=== PATIENT | female | born 1955 | race Two or more races ===

== ENCOUNTER 2018-07-02 05:58 | Inpatient (IN) | payer OTHER, MEDICARE ==
[~2018-07-02] VITALS: Ht 165.1 cm; Wt 77.1 kg
[2018-07-02] MEDS ORDERED: PANTOPRAZOLE 40 MG/10 ML VIAL IV STA (07:18)
[2018-07-02] MEDS ORDERED: SODIUM CHLORIDE 0.9% 500 ML IVB ONE (07:18)
[2018-07-02] MEDS ORDERED: SODIUM CHLORIDE 0.9% 1,000 ML IV ONE (07:18)
[2018-07-02] MEDS ORDERED: cefTRIAXone 1GM/50ML D5W 50 ML IV ONE ×3 (07:30→14:45)
[2018-07-02] MEDS ORDERED: HYDROmorphone HCL 2 MG/ML VL IV ONE (07:30)
[2018-07-02] MEDS ORDERED: PROMETHAZINE HCL 25 MG/ML 1ML IV PRN (07:30)
[2018-07-02 08:33] LABS: INR 1.01 (0.9-1.15); Partial Thromboplastin Time 27.2 sec (23.78-33.04); Prothrombin Time 10.8 sec (9.27-12.13)
[2018-07-02 08:59] LABS: Urine Bacteria FEW /hpf (None Seen); Urine Blood Negative /uL (Negative); Urine Mucus FEW (None Seen); Urine Specific Gravity 1.031 (1.001-1.035); Urine WBC 32 /hpf (0 - 5)
[2018-07-02 09:10] LABS: Basophils # (auto) 0 uL; Basophils % (auto) 0.2 % (0.0-2.0); Eosinophils # (auto) 0 uL; Eosinophils % (auto) 0.1 % (0.0-7.0); Hematocrit 42.4 % (36.0-46.0); Hemoglobin 13.9 g/dL (12.2-16.2); Lymphocytes # (auto) 0.4 uL; Lymphocytes % (auto) 4.4 % (10.0-50.0); Mean Corpuscular Hemoglobin 27.9 pg (28.0-32.0); Mean Corpuscular Hgb Conc. 32.8 g/dL (32.0-36.0); Mean Corpuscular Volume 85.1 fL (80.0-100.0); Monocytes # (auto) 0.3 uL; Neutrophils # (auto) 7.4 uL; Neutrophils % (auto) 91.3 % (37.0-80.0); Platelet Count (auto) 178 10^3/uL (140-450); Red Blood Cells 4.98 10^6/uL (4.0-5.20); Red Cell Distribution Width 14.3 % (11.8-14.3); White Blood Cell 8.1 10^3/uL (4.4-10.8)
[2018-07-02 09:11] LABS: Alanine Aminotransferase 33 U/L (13-56); Albumin 3.1 g/dL (3.4-5.0); Amylase 48 U/L (25-115); Anion Gap 11 (5-15); Aspartate Aminotransferase 20 U/L (15-37); BUN/Creatinine Ratio 20.2; Blood Urea Nitrogen 21 mg/dL (7-18); Calcium 8.5 mg/dL (8.5-10.1); Carbon Dioxide 21 mmol/L (21-32); Chloride 104 mmol/L (98-107); GFR African American 69 mL/min; GFR Non-African American 57 mL/min; Glucose 113 mg/dL (74-106); Lipase 63 U/L (73-393); Potassium 3.8 mmol/L (3.5-5.1); Sodium 136 mmol/L (136-145)
[2018-07-02 09:15] LABS: Alkaline Phosphatase 61 U/L (45-117); Bilirubin, Total 0.9 mg/dL (0.2-1.0); Total Protein 6.8 g/dL (6.4-8.2)
[2018-07-02] MEDS ORDERED: DEXAMETHASONE SOD PHOS 10MG/1ML VIAL INJ IV ONE (12:25)
[2018-07-02] MEDS ORDERED: MIDAZOLAM HCL 1MG/1ML-2 ML VIAL IV ONE (12:25)
[2018-07-02] MEDS ORDERED: GLYCOPYRROLATE 0.2 MG/ML 1ML VIAL IV ONE (12:25)
[2018-07-02] MEDS ORDERED: NEOSTIGMINE 1 MG/ML INJ (10mg/10ML VIAL) IV ONE (12:25)
[2018-07-02] MEDS ORDERED: HYDROmorphone HCL 2 MG/ML VL ONE (12:45)
[2018-07-02] MEDS ORDERED: fentaNYL CITRATE 100 MCG/2 ML VL ONE (12:45)
[2018-07-02] MEDS ORDERED: ROCURONIUM 10MG/ML 10ML VIAL IV ONE (12:45)
[2018-07-02] MEDS ORDERED: MIDAZOLAM HCL 1MG/1ML-2 ML VIAL ONE (12:46)
[2018-07-02] MEDS ORDERED: SUCCINYLCHOLINE CHLORIDE 20 MG/ML 10ML VIAL IV ONE (12:48)
[2018-07-02] MEDS ORDERED: ETOMIDATE (2MG/ML) 20ML VIAL IV ONE (13:51)
[2018-07-02] MEDS: metroNIDAZOLE 500MG/100ML 100 ML IV SCH ×2 (14:00→21:47)
[2018-07-02] MEDS ORDERED: KETOROLAC TROMETH 30 MG/ML 1ML VIAL IV ONE (14:00)
[2018-07-02] MEDS ORDERED: MORPHINE SULFATE 10 MG/ML INJ 1ML SDV IV ONE (14:00)
[2018-07-02] MEDS ORDERED: LABETALOL HCL 5 MG/ML 4ML SYRINGE IV PRN (14:00)
[2018-07-02] MEDS ORDERED: ONDANSETRON HCL 4 MG/2 ML VIAL IV ONE (14:00)
[2018-07-02] MEDS ORDERED: HYDROmorphone HCL 2 MG/ML VL IV PRN ×2 (14:00)
[2018-07-02] MEDS ORDERED: methylPREDNISolone SOD SUCC 500 MG in SODIUM CHL 0.9% 100 ML IV ONE (14:00)
[2018-07-02] MEDS ORDERED: MORPHINE SULFATE 10 MG/ML INJ 1ML SDV IV PRN ×3 (14:00→14:45)
[2018-07-02] MEDS ORDERED: MIDAZOLAM HCL 1MG/1ML-2 ML VIAL IV PRN (14:00)
[2018-07-02] MEDS ORDERED: ONDANSETRON HCL 4 MG/2 ML VIAL IV PRN ×2 (14:00→14:45)
[2018-07-02] MEDS ORDERED: ePHEDrine SULFATE 50 MG/ML AMP IV PRN (14:00)
[2018-07-02] MEDS ORDERED: PANTOPRAZOLE 80 MG in SODIUM CHL 0.9% 60 ML IV SCH (14:15)
[2018-07-02] MEDS ORDERED: LABETALOL HCL 5 MG/ML ML 20ML VIAL IV PRN (14:45)
[2018-07-02] MEDS ORDERED: NITROGLYCERIN 0.4 MG SL TAB SL PRN (14:45)
[2018-07-02 15:30] LABS: Basophils # (auto) 0 uL; Basophils % (auto) 0.1 % (0.0-2.0); Eosinophils # (auto) 0 uL; Hematocrit 39.4 % (36.0-46.0); Lymphocytes # (auto) 0.1 uL; Lymphocytes % (auto) 1.7 % (10.0-50.0); Mean Corpuscular Hgb Conc. 32.8 g/dL (32.0-36.0); Mean Corpuscular Volume 85.4 fL (80.0-100.0); Monocytes # (auto) 0.4 uL; Monocytes % (auto) 4.5 % (0.0-12.0); Neutrophils # (auto) 8.3 uL; Neutrophils % (auto) 93.7 % (37.0-80.0); Platelet Count (auto) 198 10^3/uL (140-450); Red Blood Cells 4.62 10^6/uL (4.0-5.20); Red Cell Distribution Width 14.3 % (11.8-14.3); White Blood Cell 8.8 10^3/uL (4.4-10.8)
--- NOTE | 2018-07-02 15:46 | NUR ---
Per Stacy (MOLECULAR PATHOLOGIST) Solluis felipe Medral and Protonix drip need to be given.
--- NOTE | 2018-07-02 16:00 | NUR ---
Telemetry admit from [facility] admitted to Telemetry unit after SBAR received. Patient oriented to BOLIVAR BLUNT, primary RN, unit, room, bed, and unit policies regarding patient care and visiting hours. Patient now on continuous telemetry monitoring, tele box # 6 and telemetry reading on arrival to unit is . Patient placed on bedside oxygen, weighed by bed scale and encouraged to call if they need something. All questions and concerns addressed, patient verbalized understanding.
[2018-07-02 16:11] LABS: Albumin 2.7 g/dL (3.4-5.0); BUN/Creatinine Ratio 20.5; Calcium 7.8 mg/dL (8.5-10.1)
[2018-07-02 16:14] LABS: Bilirubin, Total 0.7 mg/dL (0.2-1.0)
[2018-07-02] MEDS ORDERED: ASPI-231 PO (16:22)
[2018-07-02] MEDS ORDERED: BISO5TAB44 PO (16:22)
[2018-07-02] MEDS ORDERED: VALG450T PO (16:22)
[2018-07-02] MEDS ORDERED: MAGN400T28 PO (16:22)
[2018-07-02] MEDS ORDERED: TACR1CAP19 OR (16:22)
[2018-07-02] MEDS ORDERED: PRE5T PO (16:22)
[2018-07-02] MEDS ORDERED: LEVO88TA4 PO (16:22)
[2018-07-02] MEDS ORDERED: MYCO500T PO (16:22)
[2018-07-02] MEDS ORDERED: ATOR80TA PO (16:22)
[2018-07-02 16:30] VITALS: BP 150/85
[2018-07-02] MEDS: D5W/ SOD CHL 0.9%/KCL 20MEQ 1,000 ML IV SCH (16:49)
[2018-07-02 17:04] VITALS: BP_SYST 137; BP_SYST 150; BP_DIAS 54; BP_DIAS 85
[2018-07-02] MEDS ORDERED: metroNIDAZOLE 500MG/100ML 100 ML IV SCH (18:00)
--- NOTE | 2018-07-02 18:45 | NUR ---
Empty 75 ml of Serosanguineous from GARCIA drain.
[2018-07-02] MEDS: LABETALOL HCL 5 MG/ML 4ML SYRINGE IV PRN (18:57)
--- NOTE | 2018-07-02 18:58 | NUR ---
T 99.5, cooling measure started. Will continue to monitor.
--- NOTE | 2018-07-02 19:30 | NUR ---
Temperature reassessed, at 98.5.: Cooling measures successful. Patients temperature is at 98.5.
--- NOTE | 2018-07-02 19:40 | NUR ---
Opening Shift Note Assumed care of patient, awake and alert oriented x4. GARCIA drain is draining and intact with serosanguineous fluid. Dressing on abdomen is dry and intact. No S/S of distress/SOB or pain noted. Bed is in lowest locked position with bed rails up x2 and call light is within reach of the patient. Instructed on POC and to call for assist PRN.
[2018-07-02] MEDS: methylPREDNISolone SOD SUCC 125 MG/2 ML VL IV SCH (21:47)
[2018-07-02 22:00] VITALS: BP 133/81
[2018-07-02] MEDS ORDERED: PANTOPRAZOLE 40 MG/10 ML VIAL IV SCH (22:00)
--- NOTE | 2018-07-02 22:12 | NUR ---
Hospitalist paged: Paged hospitalist due to patient stating that they need to have their Tocrolimus (Astagraf) for kidney due to kidney transplant which is due every 12 hours. Will notify hospitalist. Addendum: 07/03/18 at 0412 by Mitra Devine RN RN Edit spelling error: Tacrolimus (Astagraf) 1mg Cap every 12 hours
--- NOTE | 2018-07-02 22:47 | NUR ---
Hospitalist called back regarding Tacrolimus: Hospitalist Natalie ordered Tacrolimus (Astagraf) 1mg Cap every 12 hours for patient as patient takes it at home. However, hospitalist stated that hospital may not carry medication. Will inform patient to have family member bring medication in tomorrow.
--- NOTE | 2018-07-02 23:00 | NUR ---
Notified patient about Tacrolimus: Informed patient that hospitalist has ordered Tacrolimus (Astagraf) 1mg Cap every 12 hours for the patient as patient takes it at home, but hospital does not carry medication in the [facility]. Instructed patient to have a family member bring the medication in for the morning to be placed in patient cassette to be administered in the hospital. Patient verbalized understanding. Will notify day shift nurse.
[2018-07-03] VITALS (7 sets, daily range): BP systolic 150–158; BP diastolic 82–94
[2018-07-03] MEDS: D5W/ SOD CHL 0.9%/KCL 20MEQ 1,000 ML IV SCH ×4 (01:51→22:27)
[2018-07-03] MEDS: metroNIDAZOLE 500MG/100ML 100 ML IV SCH ×3 (06:12→22:00)
[2018-07-03] MEDS: methylPREDNISolone SOD SUCC 125 MG/2 ML VL IV SCH ×3 (06:13→22:00)
[2018-07-03] MEDS: LABETALOL HCL 5 MG/ML 4ML SYRINGE IV PRN ×3 (06:14→12:24)
--- NOTE | 2018-07-03 06:15 | NUR ---
PRN Labetalol given due to elevated blood pressure: Blood pressure was 159/94, heart rate 101. Patient given labetalol prn for blood pressure. No S/S of distress SOB or pain noted in patient.
--- NOTE | 2018-07-03 07:05 | NUR ---
Emptied 90 mls of serosanguineous fluid from GARCIA drain.
[2018-07-03 07:07] LABS: Basophils # (auto) 0 uL; Basophils % (auto) 0.1 % (0.0-2.0); Eosinophils # (auto) 0 uL; Hematocrit 39.2 % (36.0-46.0); Lymphocytes # (auto) 0.2 uL; Lymphocytes % (auto) 1.7 % (10.0-50.0); Mean Corpuscular Hemoglobin 28.2 pg (28.0-32.0); Mean Corpuscular Hgb Conc. 33.2 g/dL (32.0-36.0); Mean Corpuscular Volume 85.1 fL (80.0-100.0); Monocytes # (auto) 0.4 uL; Neutrophils # (auto) 9.9 uL; Neutrophils % (auto) 94.2 % (37.0-80.0); Nucleated Red Blood Cells % 0.2 %; Platelet Count (auto) 210 10^3/uL (140-450); Red Blood Cells 4.61 10^6/uL (4.0-5.20); Red Cell Distribution Width 14.4 % (11.8-14.3); White Blood Cell 10.6 10^3/uL (4.4-10.8)
--- NOTE | 2018-07-03 07:08 | NUR ---
Closing note: Patient is resting in bed with no S/S of distress SOB, or pain noted. Breaths are even and unlabored. Bed is in lowest locked position with bed rails up x2 and call light is within reach of the patient. Will endorse care to day shift nurse.
[2018-07-03 07:15] LABS: Calcium 8.1 mg/dL (8.5-10.1); Magnesium 1.9 mg/dL (1.6-2.6); Potassium 4.2 mmol/L (3.5-5.1)
[2018-07-03 07:18] LABS: BUN/Creatinine Ratio 16.1
--- NOTE | 2018-07-03 08:00 | NUR ---
Opening Shift Note Assumed care of patient, awake and alert. No S/S of distress/SOB or pain. Instructed on POC and to call for assist PRN, will continue to monitor for changes Q1hr and PRN.
[2018-07-03] MEDS ORDERED: cefTRIAXone 1GM/50ML D5W 50 ML IV SCH (09:00)
[2018-07-03] MEDS ORDERED: TACROLIMUS 1 MG CAP PO SCH ×2 (10:00)
[2018-07-03] MEDS: cefTRIAXone 1GM/50ML D5W 50 ML IV SCH (10:05)
[2018-07-03] MEDS: PANTOPRAZOLE 80 MG in SODIUM CHL 0.9% 60 ML IV SCH ×2 (10:06→20:10)
[2018-07-03] MEDS ORDERED: METOPROLOL TARTRATE 50 MG TAB PO ONE (13:15)
[2018-07-03] MEDS ORDERED: ACETAMINOPHEN 500 MG TAB PO PRN (13:15)
[2018-07-03] MEDS ORDERED: BACLOFEN 10 MG TAB PO ONE (13:30)
--- NOTE | 2018-07-03 14:00 | NUR ---
IV insertion IV access obtained, via clean sterile technique by inserting 24 gauge catheter at after attempt(s). IV secured properly. No trauma to site. Patient tolerated well. NOTE:
--- NOTE | 2018-07-03 14:10 | NUR ---
IV insertion IV access obtained, via clean sterile technique by inserting 22 gauge catheter at after attempt(s). IV secured properly. No trauma to site. Patient tolerated well. NOTE:
--- NOTE | 2018-07-03 18:47 | NUR ---
Emptied 90 mls of serosanguineous fluid from GARCIA drain.
--- NOTE | 2018-07-03 18:47 | NUR ---
Gastric out put about 100 ml.
[2018-07-03] MEDS: METOPROLOL TARTRATE 50 MG TAB PO SCH (22:00)
[2018-07-03] MEDS: MYCOPHENOLATE 500 MG TAB PO SCH (22:00)
[2018-07-03] MEDS: TACROLIMUS 1 MG CAP PO SCH (22:01)
[2018-07-04] VITALS (7 sets, daily range): BP systolic 139–154; BP diastolic 86–97
[2018-07-04] MEDS ORDERED: TEMAZEPAM 15 MG CAP PO ONE (01:00)
--- NOTE | 2018-07-04 02:00 | NUR ---
Patient complained of shortness of breath. Patient was using accessory muscles to breath and was in noticeable distress. I checked hemoglobin O2 saturation which resulted 89%. I increased the O2 to 4L and called the Hospital list (Igor) who gave me an order for 40 mg Lasix IV on time. The O2 percentage increased to 98%. The patient is no longer in distress and I will continue to monitor the situation.
[2018-07-04] MEDS ORDERED: FUROSEMIDE 40 MG/4 ML VIAL IV ONE (02:30)
[2018-07-04] MEDS ORDERED: D5W/ SOD CHL 0.9%/KCL 20MEQ 1,000 ML IV SCH (02:30)
[2018-07-04] MEDS: cloNIDine HCL 0.1 MG TAB PO PRN (03:27)
[2018-07-04] MEDS: metroNIDAZOLE 500MG/100ML 100 ML IV SCH ×3 (06:00→21:54)
[2018-07-04] MEDS: methylPREDNISolone SOD SUCC 125 MG/2 ML VL IV SCH ×2 (06:00→13:06)
[2018-07-04 06:18] LABS: Basophils # (auto) 0 uL; Basophils % (auto) 0.1 % (0.0-2.0); Eosinophils # (auto) 0 uL; Hematocrit 39.5 % (36.0-46.0); Hemoglobin 13.1 g/dL (12.2-16.2); Lymphocytes # (auto) 0.2 uL; Lymphocytes % (auto) 1.2 % (10.0-50.0); Mean Corpuscular Hemoglobin 28.1 pg (28.0-32.0); Mean Corpuscular Hgb Conc. 33.1 g/dL (32.0-36.0); Mean Corpuscular Volume 84.9 fL (80.0-100.0); Monocytes # (auto) 0.8 uL; Monocytes % (auto) 5.1 % (0.0-12.0); Neutrophils # (auto) 14.4 uL; Neutrophils % (auto) 93.6 % (37.0-80.0); Platelet Count (auto) 235 10^3/uL (140-450); Red Blood Cells 4.65 10^6/uL (4.0-5.20); Red Cell Distribution Width 14.2 % (11.8-14.3); White Blood Cell 15.4 10^3/uL (4.4-10.8)
[2018-07-04 06:30] LABS: Albumin 2.5 g/dL (3.4-5.0); BUN/Creatinine Ratio 20.7; Calcium 8.5 mg/dL (8.5-10.1); Potassium 3.7 mmol/L (3.5-5.1)
[2018-07-04] MEDS: PANTOPRAZOLE 80 MG in SODIUM CHL 0.9% 60 ML IV SCH (06:30)
[2018-07-04 06:31] LABS: Bilirubin, Total 0.4 mg/dL (0.2-1.0); Total Protein 6.8 g/dL (6.4-8.2)
[2018-07-04] MEDS: LEVOTHYROXINE SODIUM 88 MCG TAB PO SCH (06:32)
--- NOTE | 2018-07-04 07:30 | NUR ---
Opening Shift Note Assumed care of patient, awake and alert. No S/S of distress/SOB or pain. Instructed on POC and to call for assist PRN, will continue to monitor for changes Q1hr and PRN. call kuhn in reach. safety and comfort measures applied. callahan catheter draining urine, ng attached to lcs suctioning green secretion, suction canister changed.
--- NOTE | 2018-07-04 09:30 | NUR ---
patient working with PT akosua, walking on the hallway independently.
--- NOTE | 2018-07-04 09:45 | NUR ---
PATIENT WAS ABLE TO TOLERATE CLEAR LIQUID DIET, NO COMPLAINTS OF NAUSEA OR VOMITING. WILL MONITOR OUTPUT FROM NGT.
[2018-07-04] MEDS: cefTRIAXone 1GM/50ML D5W 50 ML IV SCH (09:52)
[2018-07-04] MEDS: TACROLIMUS 1 MG CAP PO SCH ×2 (09:53→21:53)
[2018-07-04] MEDS: MYCOPHENOLATE 500 MG TAB PO SCH ×2 (09:53→21:53)
[2018-07-04] MEDS: METOPROLOL TARTRATE 50 MG TAB PO SCH ×2 (09:53→21:53)
--- NOTE | 2018-07-04 14:15 | NUR ---
paged md adair if it is okay to remove the ngt. will ff up and wait for further order
--- NOTE | 2018-07-04 14:15 | NUR ---
spoke with md venegas at the station, confirmed if to advance diet and how abt the ngt still attached to the suction. as per md theo adair
--- NOTE | 2018-07-04 14:24 | NUR ---
Callahan catheter dc'd Order to discontinue callahan catheter. Callahan dc'd with clean technique following deflation of balloon. Patient tolerated well with no complaints of pain. Continue care.
--- NOTE | 2018-07-04 15:00 | NUR ---
md adair called back and clarified that the patient is already at clear liquid diet but still patient is attached to ngt to lis and he did place an order to advance the diet. as per md adair remove the ngt and advance diet as tolerated, confirmed if i can place patient at soft diet as per okjade to do it.
--- NOTE | 2018-07-04 15:15 | NUR ---
NGT removal NGT removed per MD/[employer] [facility] order following explanation and instruction to patient. Patient verbalized understanding prior to removal. Patient tolerated well.
--- NOTE | 2018-07-04 17:00 | NUR ---
dressing on the surgical site done as per instruction, no drainage noted. will monitor
--- NOTE | 2018-07-04 18:55 | NUR ---
DRAINED 30ML LIGHT PINK DISCHARGES FROM THE GARCIA DRAIN
[2018-07-05 05:35] VITALS: BP_SYST 120; BP_SYST 136; BP_DIAS 59; BP_DIAS 91
[2018-07-05] MEDS: LEVOTHYROXINE SODIUM 88 MCG TAB PO SCH (06:00)
[2018-07-05] MEDS: metroNIDAZOLE 500MG/100ML 100 ML IV SCH ×2 (06:00→13:37)
[2018-07-05 07:09] LABS: Basophils # (auto) 0 uL; Eosinophils # (auto) 0 uL
[2018-07-05 07:23] LABS: Hemoglobin 12.7 g/dL (12.2-16.2); Lymphocytes # (auto) 0.3 uL; Lymphocytes % (auto) 2.3 % (10.0-50.0); Mean Corpuscular Hemoglobin 28.2 pg (28.0-32.0); Mean Corpuscular Hgb Conc. 33.4 g/dL (32.0-36.0); Mean Corpuscular Volume 84.5 fL (80.0-100.0); Monocytes # (auto) 1.1 uL; Monocytes % (auto) 7.8 % (0.0-12.0); Neutrophils # (auto) 12.7 uL; Neutrophils % (auto) 89.9 % (37.0-80.0); Platelet Count (auto) 230 10^3/uL (140-450); Red Cell Distribution Width 13.9 % (11.8-14.3); White Blood Cell 14.1 10^3/uL (4.4-10.8)
[2018-07-05 07:27] LABS: Potassium 3.6 mmol/L (3.5-5.1)
--- NOTE | 2018-07-05 07:30 | NUR ---
Opening Shift Note Assumed care of patient, awake and alert. No S/S of distress/SOB or pain. Instructed on POC and to call for assist PRN, will continue to monitor for changes Q1hr and PRN. call kuhn in reach. safety and comfort measures applied. surgical site dressing clean and dry.
[2018-07-05 07:38] LABS: BUN/Creatinine Ratio 25.9; Calcium 8.4 mg/dL (8.5-10.1)
[2018-07-05] MEDS: cloNIDine HCL 0.1 MG TAB PO PRN (07:42)
[2018-07-05 09:00] VITALS: BP 160/102
[2018-07-05] MEDS: cefTRIAXone 1GM/50ML D5W 50 ML IV SCH (09:12)
[2018-07-05] MEDS: METOPROLOL TARTRATE 50 MG TAB PO SCH (09:12)
[2018-07-05] MEDS: MYCOPHENOLATE 500 MG TAB PO SCH (09:13)
[2018-07-05] MEDS: TACROLIMUS 1 MG CAP PO SCH (09:13)
[2018-07-05] MEDS ORDERED: predniSONE 5 MG TAB PO SCH (10:00)
[2018-07-05] MEDS ORDERED: PANTOPRAZOLE 40 MG/10 ML VIAL IV SCH (10:00)
[2018-07-05 13:00] VITALS: BP 138/88
--- NOTE | 2018-07-05 14:21 | NUR ---
MD MANTILLA WITH PATIENT AND FAMILY AT BEDSIDE, POC EXPLAINED. MD MANTILLA TRIED TO CALL MD CONNELLY BUT HE IS IN THE MIDDLE OR SURGERY. PER MD TO CALL MD CONNELLY IF THE PATIENT IS OKAY TO GO HOME AT HIS SIDE THEN CAN CARRY OUT THE DISCHARGE ORDER THAT HE WILL PLACE. WILL CALL MD CONNELLY.
--- NOTE | 2018-07-05 15:34 | NUR ---
MEAGHAN CONNELLY FOR CLEARANCE FOR DISCHARGE
--- NOTE | 2018-07-05 16:19 | NUR ---
MD CONNELLY CALLED AND SAID THAT IF THE PATIENT THINKS THAT SHE IS OKAY TO GO THEN THE PATIENT IS OKAY TO GO HOME ON HIS SIDE. Addendum: 07/05/18 at 1621 by Jose G Mclean RN RN SET UP APPT FOR 2 WEEKS IN THE CLINIC
[2018-07-05 16:29] VITALS: BP 138/88
[2018-07-05 17:00] VITALS: BP 158/94
--- NOTE | 2018-07-05 18:31 | NUR ---
Discharge instructions given as ordered. Encourage to follow up with PMD bal patient needs to seek own appt and she is aware of it, appt with md adair on 07/18/18 at [address] as instructed. All questions and concerns addressed. Patient verbalized understanding. Medication reconciliation form completed and copy given to patient. IV removed with catheter intact, pressure dressing applied. Patient taken to vehicle via wheelchair with all personal belongings, accompanied by staff and family member. No distress noted at time of departure.
== END 2018-07-05 18:55 | disposition home or self-care (01) | DRG 326 ==
LOC: ER 05:58 → OR 1 11:57 → TELE-WESTW 15:39
PROVIDERS: ADMIT Surgery; ATTEND Internal Medicine
PROC: 0DQ60ZZ Repair Stomach, Open Approach (ICD-10-PCS; principal; 2018-07-02 13:15)
CPT/HCPCS: 36415; 51702; 71045; 74176; 80048; 80053; 81001; 82150; 83690; 83735; 84443; 85025; 85610; 85730; 86850; 86900; 86901; 87040; 93005; 96361; 96365; 96375; 97163; A6257; C9113; G0378; J0330; J0696; J1100; J2250; J3490; J7507; J7517

== ENCOUNTER 2018-07-15 16:41 | Emergency (ER) | payer OTHER, MEDICARE ==
[~2018-07-15] VITALS: Ht 165.1 cm; Wt 68.9 kg
[~2018-07-15 16:41] MED LIST: ASPI-231 PO; ATOR80TA PO; BISO5TAB44 PO; LEVO88TA4 PO; MAGN400T28 PO; MYCO500T PO; PRE5T PO; TACR1CAP19 OR; VALG450T PO
[2018-07-15 16:58] VITALS: BP 148/86
== END 2018-07-15 21:49 | disposition left against medical advice (07) ==
LOC: ER 16:43
DX: R52 Pain, unspecified (principal); Z53.21 Procedure and treatment not carried out due to patient leaving prior to being seen by health care provider

== ENCOUNTER 2018-12-12 16:21 | Emergency (ER) | payer MEDICARE, OTHER ==
[~2018-12-12] VITALS: Ht 165.1 cm; Wt 71.2 kg
[2018-12-12 18:30] VITALS: BP 146/83
[2018-12-12 18:46] LABS: Basophils # (auto) 0 uL; Basophils % (auto) 0.4 % (0.0-2.0); Eosinophils # (auto) 0.1 uL; Eosinophils % (auto) 1.3 % (0.0-7.0); Hematocrit 40.4 % (36.0-46.0); Hemoglobin 13.3 g/dL (12.2-16.2); Lymphocytes # (auto) 0.4 uL; Lymphocytes % (auto) 6.1 % (10.0-50.0); Mean Corpuscular Volume 84.9 fL (80.0-100.0); Monocytes # (auto) 0.5 uL; Neutrophils % (auto) 85.2 % (37.0-80.0); Platelet Count (auto) 198 10^3/uL (140-450); Red Blood Cells 4.75 10^6/uL (4.0-5.20); Red Cell Distribution Width 15.3 % (11.8-14.3)
[2018-12-12 19:03] LABS: Alanine Aminotransferase 53 U/L (13-56); Albumin 3.9 g/dL (3.4-5.0); Anion Gap 11 (5-15); Aspartate Aminotransferase 30 U/L (15-37); BUN/Creatinine Ratio 16.5; Blood Urea Nitrogen 18 mg/dL (7-18); Calcium 8.8 mg/dL (8.5-10.1); Carbon Dioxide 23 mmol/L (21-32); Chloride 105 mmol/L (98-107); GFR African American 65 mL/min; GFR Non-African American 54 mL/min; Glucose 88 mg/dL (74-106); Lipase 99 U/L (73-393); Potassium 3.8 mmol/L (3.5-5.1); Sodium 139 mmol/L (136-145)
[2018-12-12 19:14] LABS: Alkaline Phosphatase 76 U/L (45-117); Bilirubin, Total 0.6 mg/dL (0.2-1.0); Total Protein 7.5 g/dL (6.4-8.2)
== END 2018-12-12 21:05 | disposition home or self-care (01) ==
LOC: ER 16:28
DX: K59.00 Constipation, unspecified (principal); R11.10 Vomiting, unspecified; R10.33 Periumbilical pain; E78.5 Hyperlipidemia, unspecified; I10 Essential (primary) hypertension; Z79.899 Other long term (current) drug therapy
CPT/HCPCS: 36415; 74176; 80053; 83690; 84484; 85025; 93005

== ENCOUNTER 2019-04-20 19:02 | Emergency (ER) | payer MEDICARE, OTHER ==
[2019-04-20 19:43] LABS: Basophils # (auto) 0 uL; Basophils % (auto) 0.1 % (0.0-2.0); Eosinophils # (auto) 0 uL; Eosinophils % (auto) 0.3 % (0.0-7.0); Hematocrit 37.4 % (36.0-46.0); Hemoglobin 12.3 g/dL (12.2-16.2); Lymphocytes # (auto) 0.6 uL; Lymphocytes % (auto) 4.2 % (10.0-50.0); Mean Corpuscular Hemoglobin 27.5 pg (28.0-32.0); Mean Corpuscular Volume 83.2 fL (80.0-100.0); Monocytes % (auto) 7.8 % (0.0-12.0); Neutrophils # (auto) 11.6 uL; Neutrophils % (auto) 87.6 % (37.0-80.0); Platelet Count (auto) 248 10^3/uL (140-450); Red Blood Cells 4.49 10^6/uL (4.0-5.20); White Blood Cell 13.2 10^3/uL (4.4-10.8)
[2019-04-20 20:00] LABS: Albumin 2.8 g/dL (3.4-5.0); BUN/Creatinine Ratio 17.1; Calcium 8.1 mg/dL (8.5-10.1); Potassium 4.3 mmol/L (3.5-5.1)
[2019-04-20 20:02] LABS: Bilirubin, Total 0.6 mg/dL (0.2-1.0); Total Protein 7.1 g/dL (6.4-8.2)
[2019-04-20] MEDS ORDERED: SODIUM CHLORIDE 0.9% 1,000 ML IV ONE (20:45)
[2019-04-20 22:11] VITALS: BP 171/95
== END 2019-04-20 23:27 | disposition home or self-care (01) ==
LOC: ER 19:02
DX: N28.9 Disorder of kidney and ureter, unspecified (principal); R19.7 Diarrhea, unspecified; R79.9 Abnormal finding of blood chemistry, unspecified; E78.5 Hyperlipidemia, unspecified; I10 Essential (primary) hypertension; Z79.899 Other long term (current) drug therapy
CPT/HCPCS: 36415; 80053; 85025; 96360; 99283; J7030

== ENCOUNTER 2019-12-01 06:42 | Emergency (ER) | payer MEDICARE, OTHER ==
[~2019-12-01] VITALS: Ht 165.1 cm; Wt 75.7 kg
[2019-12-01] MEDS ORDERED: SODIUM CHLORIDE 0.9% 1,000 ML IV ONE (07:51)
[2019-12-01 08:44] LABS: Basophils # (auto) 0 10 ^3/uL (0-0.2); Basophils % (auto) 0.6 % (0.0-2.0); Eosinophils # (auto) 0.1 10 ^3/uL (0-0.8); Eosinophils % (auto) 1.8 % (0.0-7.0); Hematocrit 40.8 % (36.0-46.0); Hemoglobin 13.3 g/dL (12.2-16.2); Lymphocytes # (auto) 0.6 10 ^3/uL (0.4-5.4); Lymphocytes % (auto) 6.9 % (10.0-50.0); Mean Corpuscular Hemoglobin 27.5 pg (28.0-32.0); Mean Corpuscular Hgb Conc. 32.5 g/dL (32.0-36.0); Mean Corpuscular Volume 84.6 fL (80.0-100.0); Monocytes # (auto) 0.6 10 ^3/uL (0-1.3); Monocytes % (auto) 7.4 % (0.0-12.0); Neutrophils # (auto) 6.7 10 ^3/uL (1.6-8.6); Neutrophils % (auto) 83.3 % (37.0-80.0); Nucleated Red Blood Cells % 0.1 %; Platelet Count (auto) 216 10^3/uL (140-450); Red Blood Cells 4.83 10^6/uL (4.0-5.20); Red Cell Distribution Width 14.4 % (11.8-14.3); White Blood Cell 8.1 10^3/uL (4.4-10.8)
[2019-12-01 09:01] LABS: Albumin 3.5 g/dL (3.4-5.0); Potassium 3.6 mmol/L (3.5-5.1)
[2019-12-01 09:05] LABS: Bilirubin, Total 0.7 mg/dL (0.2-1.0); Total Protein 7.5 g/dL (6.4-8.2)
[2019-12-01 09:10] LABS: Magnesium 1.9 mg/dL (1.6-2.6)
[2019-12-01 10:30] VITALS: BP 125/74
[2019-12-01 11:09] LABS: Urine Amorphous Crystal FEW /hpf (None Seen); Urine Bacteria FEW /hpf (None Seen); Urine Blood Negative /uL (Negative); Urine Mucus FEW (None Seen); Urine WBC 10 /hpf (0 - 5)
== END 2019-12-01 11:37 | disposition home or self-care (01) ==
LOC: ER 06:42
DX: K29.70 Gastritis, unspecified, without bleeding (principal); N39.0 Urinary tract infection, site not specified; E78.5 Hyperlipidemia, unspecified; I10 Essential (primary) hypertension; Z87.11 Personal history of peptic ulcer disease; Z94.0 Kidney transplant status
CPT/HCPCS: 36415; 80053; 81001; 83690; 83735; 84443; 85025; 96360; 96361; 99283; J7030

== ENCOUNTER 2022-01-16 17:27 | Emergency (ER) | payer MEDICARE, OTHER ==
[~2022-01-16] VITALS: Ht 165.1 cm; Wt 69.3 kg
[~2022-01-16 17:27] MED LIST changes: -ASPI-231 PO; +ASPI1TAB20 PO
[2022-01-16 18:46] LABS: Basophils # (auto) 0.1 10 ^3/uL (0-0.2); Basophils % (auto) 0.9 % (0.0-2.0); Eosinophils # (auto) 0.1 10 ^3/uL (0-0.8); Eosinophils % (auto) 1.5 % (0.0-7.0); Hematocrit 40.2 % (36.0-46.0); Hemoglobin 12.9 g/dL (12.2-16.2); Lymphocytes # (auto) 0.4 10 ^3/uL (0.4-5.4); Lymphocytes % (auto) 6.1 % (10.0-50.0); Mean Corpuscular Hemoglobin 27.5 pg (28.0-32.0); Mean Corpuscular Hgb Conc. 32.2 g/dL (32.0-36.0); Mean Corpuscular Volume 85.4 fL (80.0-100.0); Monocytes # (auto) 0.3 10 ^3/uL (0-1.3); Neutrophils # (auto) 6.2 10 ^3/uL (1.6-8.6); Neutrophils % (auto) 87.5 % (37.0-80.0); Red Cell Distribution Width 16.8 % (11.8-14.3); White Blood Cell 7.1 10^3/uL (4.4-10.8)
[2022-01-16 19:05] LABS: Albumin 4.3 g/dL (3.4-5.0); BUN/Creatinine Ratio 18.8; Calcium 9.6 mg/dL (8.5-10.1); Potassium 4.5 mmol/L (3.5-5.1)
[2022-01-16 19:15] LABS: Bilirubin, Total 0.8 mg/dL (0.2-1.0); Total Protein 7.8 g/dL (6.4-8.2)
[2022-01-17] MEDS ORDERED: hydrALAZINE HCL 20 MG/ML VL IV PRN (00:30)
[2022-01-17 01:10] VITALS: BP 129/65
[2022-01-17 01:31] LABS: Urine Bacteria NONE SEEN /hpf (None Seen); Urine Blood Negative /uL (Negative); Urine Mucus FEW (None Seen); Urine Specific Gravity 1.008 (1.001-1.035); Urine WBC 1 /hpf (0 - 5)
== END 2022-01-17 01:51 | disposition home or self-care (01) ==
LOC: ER 17:27
DX: I20.9 Angina pectoris, unspecified (principal); E78.5 Hyperlipidemia, unspecified; I10 Essential (primary) hypertension
CPT/HCPCS: 36415; 71045; 80053; 81001; 83735; 83880; 84484; 85025; 93005; 96374; 99285; J0360

== ENCOUNTER 2022-03-24 12:49 | Observation (INO) | payer OTHER ==
[~2022-03-24] VITALS: Ht 165.1 cm; Wt 69.0 kg
[2022-03-24] MEDS ORDERED: IPRATROPIUM BROM 0.5 MG/2.5ML INH SOL HHN ONE (15:45)
[2022-03-24] MEDS ORDERED: methylPREDNISolone SOD SUCC 125 MG/2 ML VL IV ONE (15:45)
[2022-03-24] MEDS ORDERED: cefTRIAXone 1GM/50ML D5W 50 ML IV ONE (16:00)
[2022-03-24 16:19] LABS: Basophils # (auto) 0 10 ^3/uL (0-0.2); Basophils % (auto) 0.2 % (0.0-2.0); Eosinophils # (auto) 0 10 ^3/uL (0-0.8); Eosinophils % (auto) 0.3 % (0.0-7.0); Hematocrit 43.1 % (36.0-46.0); Hemoglobin 13.9 g/dL (12.2-16.2); Lymphocytes # (auto) 0.2 10 ^3/uL (0.4-5.4); Lymphocytes % (auto) 1.7 % (10.0-50.0); Mean Corpuscular Hgb Conc. 32.1 g/dL (32.0-36.0); Mean Corpuscular Volume 84.1 fL (80.0-100.0); Monocytes # (auto) 0.6 10 ^3/uL (0-1.3); Monocytes % (auto) 4.8 % (0.0-12.0); Neutrophils # (auto) 11.1 10 ^3/uL (1.6-8.6); Red Blood Cells 5.13 10^6/uL (4.0-5.20); Red Cell Distribution Width 14.4 % (11.8-14.3)
[2022-03-24 16:43] LABS: Albumin 3.9 g/dL (3.4-5.0); Calcium 9.1 mg/dL (8.5-10.1); Potassium 3.8 mmol/L (3.5-5.1)
[2022-03-24 16:45] LABS: BUN/Creatinine Ratio 15.3
[2022-03-24 16:49] LABS: Bilirubin, Total 1.1 mg/dL (0.2-1.0); Total Protein 7.7 g/dL (6.4-8.2)
[2022-03-24] MEDS ORDERED: MORPHINE SULFATE INJ 2 MG/ml SYRG IV PRN (17:30)
[2022-03-24] MEDS ORDERED: PIPERACILLIN-TAZOB 3.375GM 100 ML IV SCH (17:30)
[2022-03-24] MEDS ORDERED: D5W/SOD CHL 0.45% 1,000 ML IV SCH (17:30)
[2022-03-24] MEDS ORDERED: NITROGLYCERIN 0.4 MG SL TAB SL PRN (17:30)
[2022-03-24] MEDS ORDERED: VANCOMYCIN PER PHARMACY 0 MG IV SCH (17:30)
[2022-03-24] MEDS ORDERED: VANCOMYCIN 1GM/250ML 250 ML IV ONE (17:45)
[2022-03-24] MEDS: IPRATROPIUM BROM 0.5 MG/2.5ML INH SOL NEB SCH ×2 (18:06→22:05)
[2022-03-24] MEDS: ALBUTEROL SULF 2.5 MG/0.5ML(0.5%) NEB SOLN NEB SCH ×2 (18:06→22:05)
[2022-03-24] MEDS ORDERED: metroNIDAZOLE 500MG/100ML 100 ML IV SCH (19:00)
[2022-03-24 20:00] VITALS: BP 182/88
[2022-03-24] MEDS ORDERED: DOXY-340 PO (20:10)
[2022-03-24] MEDS ORDERED: CLIN300C8 PO (20:10)
[2022-03-24] MEDS ORDERED: hydrALAZINE HCL 20 MG/ML VL IV PRN (20:15)
[2022-03-24] MEDS ORDERED: ATORVASTATIN 20 MG TAB PO SCH (22:00)
[2022-03-24] MEDS ORDERED: MYCOPHENOLATE 500 MG TAB PO SCH (22:00)
[2022-03-25] MEDS: PIPERACILLIN-TAZOB 3.375GM 100 ML IV SCH ×3 (01:07→06:00)
[2022-03-25] MEDS: ALBUTEROL SULF 2.5 MG/0.5ML(0.5%) NEB SOLN NEB SCH ×3 (01:39→10:36)
[2022-03-25] MEDS: IPRATROPIUM BROM 0.5 MG/2.5ML INH SOL NEB SCH ×3 (01:39→10:35)
[2022-03-25 06:30] VITALS: BP 139/77
[2022-03-25] MEDS ORDERED: LEVOTHYROXINE SODIUM 88 MCG TAB PO SCH (07:00)
[2022-03-25] MEDS ORDERED: cefTRIAXone 1GM/50ML D5W 50 ML IV SCH (09:00)
[2022-03-25] MEDS ORDERED: predniSONE 5 MG TAB PO SCH (10:00)
[2022-03-25] MEDS ORDERED: BISOPROLOL FUMARATE 5 MG PO SCH (10:00)
[2022-03-25] MEDS ORDERED: ASPirin-EC 81 mg tab PO SCH (10:00)
[2022-03-25] MEDS ORDERED: VALGANCICLOVIR HYDROCHLORIDE 450 MG PO SCH (10:00)
== END 2022-03-25 06:45 | disposition home or self-care (01) ==
LOC: ER 12:49 → EDBD 12:49 → TELE 17:34
PROVIDERS: ADMIT Hospitalist; ATTEND Hospitalist
DX: J18.9 Pneumonia, unspecified organism (principal); J96.01 Acute respiratory failure with hypoxia; I16.0 Hypertensive urgency; I10 Essential (primary) hypertension; E78.00 Pure hypercholesterolemia, unspecified; S42.002A Fracture of unspecified part of left clavicle, initial encounter for closed fracture; Z85.71 Personal history of Hodgkin lymphoma; Z94.0 Kidney transplant status; Z79.82 Long term (current) use of aspirin; Z79.899 Other long term (current) drug therapy; Z98.890 Other specified postprocedural states; X58.XXXA Exposure to other specified factors, initial encounter; Y92.89 Other specified places as the place of occurrence of the external cause; Y93.89 Activity, other specified; Y99.8 Other external cause status
CPT/HCPCS: 36415; 36600; 71045; 80053; 82805; 83605; 83880; 84484; 85025; 87040; 93005; 94640; 96365; 96366; 96367; 96375; 99285; G0378; J0696; J2543; J2930; J3370; J7517; J7644